=== PATIENT | male | born 1970 | race Caucasian/White ===

== ENCOUNTER 2021-04-07 14:57 | Emergency (ER) | payer SELFPAY ==
[2021-04-07] MEDS ORDERED: hydrOXYzine 25 MG TAB ONE (16:12)
[2021-04-07] MEDS ORDERED: predniSONE 20 MG TAB ONE (16:12)
[2021-04-07] MEDS ORDERED: Sterile Water 10 ML ONE (16:13)
[2021-04-07] MEDS ORDERED: CEFAZOLIN 1 GM VIAL ONE (16:13)
== END 2021-04-07 17:00 | disposition home or self-care (01) ==
LOC: CSHERS 14:57
DX: L23.7 Allergic contact dermatitis due to plants, except food (principal); F17.210 Nicotine dependence, cigarettes, uncomplicated
CPT/HCPCS: 96372; 99282; J0690; J7512

== ENCOUNTER 2021-08-05 03:45 | Emergency (ER) | payer SELFPAY ==
[2021-08-05] MEDS ORDERED: predniSONE 20 MG TAB ONE (04:45)
== END 2021-08-05 05:09 | disposition home or self-care (01) ==
LOC: CSHERS 03:45
DX: L23.7 Allergic contact dermatitis due to plants, except food (principal); F17.210 Nicotine dependence, cigarettes, uncomplicated
CPT/HCPCS: 99282; J7512